=== PATIENT | female | born 2000 | race Caucasian/White ===

== ENCOUNTER 2024-09-30 14:30 | Outpatient (AMB) | payer MEDICAID, SELFPAY ==
[2024-09-30 14:50] VITALS: BP 121/80; PULSE 86; RESP 16; TEMP 36.5; O2SAT 97; BMI 33.2
--- NOTE | 2024-09-30 14:50 | OBCLNT_ITS ---
Vital Signs 09/30/24 14:50 Height 1.7 m Height Method Stated Weight 96.218 kg Weight Measurement Method Standing Scale BMI 33.2 BP 121/80 Blood Pressure Source Automatic Cuff Blood Pressure Location Right Upper Arm Position Sitting Respiration 16 Pulse 86 Pulse Source Monitor Temp 97.7 F Temp Source Oral Pulse Oximetry (%) 97 Oxygen Delivery Method Room Air Allergies/Home Meds Allergies & Medications Allergies No Known Allergies Allergy (Verified 09/30/24 15:00) Medication Reconciliation vit no.95-ferrous fumarate 28 mg-folic acid 800 mcg tablet () 1 tab PO QDAY 09/06/23 [History Confirmed 09/30/24] Intake Visit Data Collection New Patient or Established: Established Patient (seen at [facility] within 3 years) Reason for Visit:: INITIAL CARE Seen by Clinical Staff ONLY (RN/MA): No Patient Transportation Driver Required: No Do You Feel Safe at Home: Yes Authorities Contacted: N/A PCP or OBGYN visit in last 3 months: No Hx Now: Yes Are you currently on any form of Control: No Pain Present Currently: No Pain Scale Used: Kelley-Dangelo/Numerical Pain scale:: 0 Smoking Status Smoking Status: Never smoker Questionnaires Covid-19 Vaccine Questionnaire Has patient been vacinated for Covid-19 Have you been vacinated for Covid-19: Yes PHQ-9 PHQ-2 Over the last 2 weeks, how often have you been bothered by any of the following problems? 1. Little interest or pleasure in doing things: not at all 2. Feeling down, depressed, or hopeless: not at all Total score: 0 PHQ-9 3. Trouble falling or staying asleep, or sleeping too much: Not at all 4. Feeling tired or having little energy: Not at all 5. Poor appetite or overeating: Not at all 6. Feeling bad about yourself - or that you are a failure or have let yourself or your family down: Not at all 7. Trouble concentrating on things, such as reading the newspaper or watching television: Not at all 8. Moving or speaking so slowly that other people could have noticed? - Or the opposite - being so fidgety or restless that you have been moving around a lot more than usual: not at all 9. Thoughts that you would be better off or of hurting yourself in some way: Not at all Total score: 0 Source: Developed by Drs. Guy Brown, Nesha Regan, Edwin Luu and colleagues, with an educational ritika from [employer]. Depression screen completed yes Social History Living Situation History Housing: House Tobacco History Smoking Status: Never smoker Second Hand Smoke Exposure: Yes Alcohol History Alcohol Intake: Never Domestic Abuse History Do You Feel Safe at Home: Yes History of Present Illness HPI Narrative 24 yo at 10w3 for OBI. LMP07/19/24, poor dates. close spacing. 1 YO at home. no SAB complaints. EDC 04/27/25. elevated BMI, No PMH. c/o severe Migranes since 09/05. reporte getting migranes 3 x per week. They can be so severe that she has to stop what she is doing and lie down in a dark cool place. Tylenol does not help. cooling cap , and dark places help. no aura, no visual changes, no neurologic complaints. + nausea.tired, happy about , unplanned. no contraception.. 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 tylenol does not help. cooling cap, darkness and cool places help. patient usually has to lie daow. migranes 3 x per week. no SAB complaints. + nausea. close spacing schedule NT scan with MFM, sab precaution, continue current measure for helping with migrane/cooling cap,tylenol and resting in dark room. OB panel,NIPT,carrier screen today. hydrate, increase protien, small meals, sched appointment with PCP for migranes, TANK for worsening s/s. rtc 4 week OBC Menstrual History Menstrual reliability: approximate (month known) Flow: normal Menstrual regularity: irregular Monthly: No Age at menarche: 13 On control pills at conception: No Associated symptoms (LMP): Reports nausea, fatigue, breast tenderness and bloating OB History : 2 Para: 1 # of Living Children: 1 Delivery History 1st : Child's name: TANNER date: 09/08/23 sex: male Gestational age at delivery (weeks): 40 Delivery type: vaginal Delivery complications: NONE History of depression before or after : No Infection History & Risk Evaluation History of STDs: none Genetic Screening & History Genetic Screening/Teratology Counseling - Includes patient, baby's father, or anyone in either family with: 1. Patient's age 35 years or older as of estimated date of delivery: No 2. Thalassemia (Lao, Mongolian, Mediterranean, or Background); MCV less than 80: No 3. Neural Tube Defect (Meningomyelocele, Spina Bifida, or Anencephaly): No 4. Congenital Heart Defect: No 5. Down Syndrome: No 6. Fritz-Sachs (Ashkenazi Nondenominational, Cajun, Syrian [place]): No 7. Aury Disease (Ashkenazi Nondenominational): No 8. Familial Dysautonomia (Ashkenazi Nondenominational): No 9. Sickle Cell Disease or Trait (): No 10. Hemophilia or other blood disorders: No 11. Muscular Dystrophy: No 12. Cystic Fibrosis: No 13. Isaias's Chorea: No 14. Mental Retardation/Autism: No 15. Other inherited genetic or chromosomal disorder: No 16. Maternal Metabolic Disorder (EG,TYPE 1 Diabetes, PKU): No 17. Patient or baby's father had a child with defects not listed above: No 18. Recurrent loss or a stillbirth: No 19. Medications (including supplements, vitamins, herbs or otc drugs)/illicit/recreational drugs/alcohol since last menstrual period: No 20. Any other: No Infection History 1. Live with someone with TB or exposed to TB: No 2. Rash or viral illness since last menstrual period: No 3. Hepatitis B,C: No Other (see comments) Source: [employer] Review of Systems Review of Systems Systems Reviewed: All systems reviewed, normal except as documented Constitutional Constitutional: Reports fatigue Gastrointestinal Gastrointestinal: Reports bloating and Reports nausea Endocrine Endocrine: Reports fatigue Exam General Limitations: no limitations General Appearance: alert, in no apparent distress, comfortable, cooperative, healthy appearing, well developed and well groomed Head Head exam: atraumatic, normocephalic and normal inspection Chest Chest inspection: Present normal inspection and symmetric chest wall rise Resp Respiratory exam: Present normal lung sounds bilaterally Card Cardiovascular exam: Present regular rate, normal rhythm and normal heart sounds Abdominal Abdominal exam: Present soft and normal bowel sounds Psych Psychiatric exam: Present normal affect and normal mood Office Procedures OB Clinic LOC & Office Proc's Nursing/Assessment Patient Status: Established Patient OB Clinic Nursing Assessment: Medication Reconciliation, Update PMH in EMR and Vital Signs OB Clinic Coordination of Care: Complex Care and Chronic Disease 1-5, Consent,records obtained, informed consent, Education Simp Pt/Fam, Lab and Imaging orders, Results/Orders obtained and Staff clarify orders Special Needs: Heart tones Established Patient Charge Established Patient Point Assignment: 135 Established Patient Point Charge: EP Level 4 (120-155) Assessment & Plan Diagnosis / Problem List (1) Encounter for supervision of normal in multigravida in first trimester: Status: Acute (2) Obstetric risk in patient in first trimester, antepartum: Status: Acute Plan schedule NT scan, sab precaution, NIPT,OB panel and carrier screen today. sched ule with PCP for migrane, ER if worsening s/s, continue Tylenol, cooling cap and comfort measure, increase fluid,increase protiene, continue PNV, RTC 4 week OBC Additional Plan Follow Up: 4 Weeks (obc)
== END 2024-09-30 15:28 | disposition home or self-care (01) ==
LOC: HODSOBC 14:30
PROVIDERS: Supervising Provider Advanced Practice Midwife; Visit Provider Advanced Practice Midwife
DX: O09.891 Supervision of other high risk pregnancies, first trimester (principal); Z3A.10 10 weeks gestation of pregnancy; O99.351 Diseases of the nervous system complicating pregnancy, first trimester; G43.909 Migraine, unspecified, not intractable, without status migrainosus
CPT/HCPCS: 81001; 99214; G0463

== ENCOUNTER 2025-04-17 10:18 | Observation (INO) | payer SELFPAY ==
[2025-04-17] VITALS (9 sets, daily range): BP systolic 116–130; BP diastolic 71–79; PULSE 100–116; RESP 19–96; TEMP 36.6; O2SAT 96–98; BMI 39.3
== END 2025-04-17 11:05 | disposition home or self-care (01) ==
PROVIDERS: Admitting Provider Obstetrics & Gynecology; Visit Provider Obstetrics & Gynecology
DX: O36.8130 Decreased fetal movements, third trimester, not applicable or unspecified (principal); Z3A.38 38 weeks gestation of pregnancy
CPT/HCPCS: 59025; 59899

== ENCOUNTER 2025-04-27 00:32 | Inpatient (IN) | payer MEDICAID, SELFPAY ==
[2025-04-27] VITALS (100 sets, daily range): BP systolic 91–194; BP diastolic 51–142; PULSE 92–161; RESP 12–191; TEMP 36.4–37.2; O2SAT 92–100; BMI 39.9
--- NOTE | 2025-04-27 01:25 | XR_ITS ---
Examination: Complete OB ultrasound greater than 14 weeks Date and time of exam: April 27, 2025, 0209 hours INDICATIONS: Pelvic contractions beginning today Findings: Viable intrauterine single fetus with single amniotic sac presentation cephalic Cardiac motion 144 bpm Placenta anterior maternal left grade 2 Medical cord insertion 3 vessel seen Amniotic fluid index 13.6 cm Cervix 5.0 cm Ovaries obscured by bowel gas. Composite estimated gestational age based on BPD, head circumference, abdominal circumference, femur length is 39 weeks 0 days Estimated weight 3575.7 g. Survey of intracranial anatomy, spinal anatomy, abdominal anatomy, four-chamber heart performed with no abnormalities identified. Impression: Viable intrauterine gestation cephalic presentation.
[2025-04-27] MEDS: RINGERS LACTATED 1000 ML 1,000 ML 125 ML IV ×3 (02:04→07:43)
[2025-04-27 02:08] LABS: Basophils # (Auto) 0.0 Thou/mm3 (0.0-0.2); Basophils % (Auto) 0 % (0-2.5); Eosinophils # (Auto) 0.1 Thou/mm3 (0.0-0.5); Eosinophils % (Auto) 1 % (0-10); Hematocrit 32.5 % (36.0-46.0); Hemoglobin 11.1 g/dL (12.0-16.0); Immature Granulocytes Auto 0.05 Thou/mm3 (0.00-0.00); Lymphocytes # (Auto) 2.2 Thou/mm3 (1.0-4.8); Lymphocytes % (Auto) 20 % (10-50); Mean Corpuscular HGB Conc 34.2 g/dl (31.0-37.0); Mean Corpuscular Hemoglobin 30.2 pg (25.0-35.0); Mean Corpuscular Volume 89 fL (80-100); Monocytes # (Auto) 0.6 Thou/mm3 (0.0-0.8); Monocytes % (Auto) 6 % (0-12); Neutrophils # (Auto) 8.3 Thou/mm3 (1.8-7.7); Neutrophils % (Auto) 74 % (37-80); Nucleated Red Blood Cell # 0.00 Thou/mm3 (0.00-0.00); Nucleated Red Blood Cell % 0 /100 WBC (0); Platelet Count 304 Thou/mm3 (140-440); RDW Standard Deviation 46.1 fL (36.4-46.3); Red Blood Count 3.67 Miln/mm3 (4.00-5.20); White Blood Count 11.3 Thou/mm3 (3.6-11.0)
[2025-04-27 02:44] LABS: Syphilis Nonreactive (Nonreactive)
--- NOTE | 2025-04-27 03:11 | PD.LDHP ---
Documentation for date of: 04/27/25 OB Labor/Induct. HPI History of Present Illness Chief complaint: leakage of fluid : 2 Para: 1 Term pregnancies: 1 pregnancies: 0 Living children: 1 History of Abortions: Spontaneous and Elective: 0 History of Vaginal deliveries: 1 History of sections: No History of : No Date of last menstrual period: 07/19/24 TANK: 04/25/25 Gestational Age (weeks): 40 Gestational Age (days): 2 Gestational age based on last menstrual period: 40 History of present illness: Patient presents for loss of fluid, clear, that occurred at 00:20, green-tinged. No regular/painful ctx. No vaginal bleeding. Normal movement. No fevers/chills. History of Present Dating criteria: LMP confirmed by 2nd trimester US Adequate Care: Yes Ultrasounds: normal mid trimester US and other (growth scan [id number] at 36 weeks) Narrative: Hx of 1 at term in 2023, [id number] Current significant for: -Starting BMI 33, taking ASA -Short inter- interval -Positive SMA -mild intermittent asthma -Care with SHANNAN Spencer Labs Maternal Blood Type: O Pos Labs: Positive: Rubella Titre, Negative: RPR, Hepatitis B, HIV, Chlamydia, Gonorrhea and Group Beta Strep and Unknown: Herpes Type 1 and Herpes Type 2 Review of Systems Review of Systems Narrative Review of Systems: Review of Systems Systems Reviewed: All systems reviewed, normal except as documented Constitutional Constitutional: Denies body ache(s), Denies chills, Denies fever(s) and Denies headache(s) ENT Ears, Nose, Mouth, and Throat: Denies headache(s) and Denies vertigo Cardiovascular Cardiovascular: Denies chest pain, Denies palpitations, Denies dyspnea and Denies syncope Respiratory Respiratory: Denies cough, Denies dyspnea Gastrointestinal Gastrointestinal: Denies nausea and Denies vomiting Neurologic Neurologic: Denies convulsions, Denies headache(s), Denies other visual disturbances, Denies syncope and Denies vertigo Past Medical History Family History OTHER FAMILY HX: Paternal Grandfather T2DM Surgical History SURGICAL: Negative Section OTHER SURGICAL HX: excision of breast cyst, appendectomy 2022 Social History SOCIAL: No tobacco/ETOH/illicit drug use Past Medical History Comments PMH COMMENT: -Starting BMI 33, taking ASA -mild intermittent asthma -irregular menses (PCOS?) Meds Home Medications and Allergies Home Medications ?Medication ?Instructions ?Recorded ?Confirmed ?Type vit no.95-ferrous 1 tab PO QDAY 09/06/23 04/27/25 History fumarate 28 mg-folic acid 800 mcg tablet () Allergies Allergy/AdvReac Type Severity Reaction Status Date / Time No Known Allergies Allergy Verified 04/27/25 01:14 OB Exam Physical Exam Vital signs: Temp Pulse Resp BP Pulse Ox 98.2 F 108 H 17 117/78 99 04/27/25 00:55 04/27/25 02:52 04/27/25 00:55 04/27/25 02:52 04/27/25 01:44 Narrative: General: well developed, well nourished, no acute distress, conversant Cardiac: normal heart rate Lungs: breathing without distress Abdomen: soft, gravid, non-tender, no rebound or guarding Extremities: no pain with palpation of calves Detailed Labor and Delivery Exam Dilation (cm): 3 Effacement (%): 60 Cervix position: mid station: -2 Presentation: Vertex Membranes: ruptured Amniotic fluid: thin meconium monitor accelerations: 15x15 monitor decelerations: None detention variability: Moderate (11-25) OB Results Labs 04/27/25 01:45 Labs: Short CBC 04/27/25 Range/Units 01:45 WBC 11.3 H (3.6-11.0) Thou/mm3 Hgb 11.1 L (12.0-16.0) g/dL Hct 32.5 L (36.0-46.0) % Plt Count 304 (140-440) Thou/mm3 Impressions Impression: EFW 3575g, ANNIE 13cm OB Assessment & Plan Assessment and Plan (1) SROM (spontaneous rupture of membranes): Status: Acute Assessment and plan: Tatiana is a 25yo with SIUP at 40&3wk presenting with SROM, thin mec, at 00:20 on 04/27. SCE: 3/60/-2. Vitals wnl, benign exam. Reassuring assessment. PMhx/ significant for: -Starting BMI 33, taking ASA -Short inter- interval -Positive SMA -mild intermittent asthma -Care with SHANNAN Spencer Plan: -Admit to L&D -Establish IV, routine labs -CEFM -Clear liquid diet -Instrument Technician/consent re: and augmentation -Initiate IV pitocin in 2 hours if not having regular ctx with cervical change -GBS status: negative -Anticipate -Safe to proceed (2) 40 weeks gestation of : Status: Acute (3) Obesity affecting : Status: Acute (4) Short interval between pregnancies affecting in third trimester, antepartum: Status: Acute (3) Obesity affecting Qualifiers: Trimester: third trimester Obesity type affecting : unspecified obesity Qualified Code(s): O99.213 - Obesity complicating , third trimester
--- NOTE | 2025-04-27 04:01 | PRELIM_ITS ---
Obstetric ultrasound with Doppler. April 27, 2025 0209 hours Clinical history: Unknown EFW, determine EFW Comparison: None available at the time of this report. Findings: The [employer] ticket checker worksheet is not available at the time of this report. There is a gravid uterus with a live fetus of mean gestational age 39 weeks and 0 days (by biometry). cardiac activity is present at a heart rate of 144 beats per minute. There is no evidence of placenta previa or retroplacental hemorrhage. Amniotic fluid is adequate (ANNIE = 13.6 cm). Estimated weight is 3576 grams+/- 529 grams. The cervix measures 5.0 cm, closed. No abnormalities by Doppler. Impression: Gravid uterus with a single live fetus of mean gestational age 39 weeks 0 days. Estimated weight is 3576 grams+/- 529 grams. Report Electronically Signed By: Troy Brandon 04/27/2025 4:00:51 AM [EST]
--- NOTE | 2025-04-27 04:40 | PD.LDPN ---
Documentation for date of: 04/27/25 OB Labor Progress Note Pelvic Exam Dilation (cm): 3 Effacement (%): 60 station: -3 Amniotic membrane status: Ruptured Contractions Monitor mode: External Contraction frequency: 1-5 Contraction pattern: Coupling Contraction intensity: Mild Status status: Category ll Assessment and Plan Comments: Intrapartum Note Patient feeling ctx as fairly strong, though they are not regular. Vitals wnl, afebrile SCE: /-3, mod mec Cat II FHRT for +accels, mod darrion, but occasional variable vs early decels Given Cat II FHRT, have not been able to initiate IV pitocin for augmentation. I discussed with patient current FHRT and that if she does not progress over time with continued Cat II FHRT, would indicate need for Answered all questions Will continue to monitor closely Initiate IV pitocin if FHRT resolves to Cat I CEFM Safe to proceed Arabella Valdes MD
[2025-04-27] MEDS: TERBUTALINE SULF INJ 1 MG/ML VIAL 0.25 MG SC (07:26)
--- NOTE | 2025-04-27 07:36 | PD.LDPN ---
Documentation for date of: 04/27/25 OB Labor Progress Note Pelvic Exam Dilation (cm): 5 Effacement (%): 70 station: -2 Amniotic membrane status: Ruptured Contractions Monitor mode: External Contraction frequency: 1-5 Contraction pattern: Coupling Contraction intensity: Mild Status status: Category ll Assessment and Plan Comments: Went to room for recurrent FHR decels. Patient recently received epidural, bp 90's/50's, prior 120's systolic SCE: 5/60/-2, IUPC and FSE placed Prolonged FHR decel occurred, patient placed far lateral, both sides tried, O2 initiated, IVF infusion rate increased, and ephedrine administered by [employer] CUTTING PRESS FEEDER. With these measures, FHR recovered. Continued to observe at bedside and with next ctx, another FHR decel occurred variable/early so terbutaline administered. FHR variability maintained throughout. Will administer amnioinfusion 500ml NS. Will continue to keep a close eye to FHR tracing. Patient understands that if FHR tracing does not improve or she doesn't progress, will be indicated Safe to proceed Arabella Valdes MD
--- NOTE | 2025-04-27 08:38 | PD.LDPN ---
Documentation for date of: 04/27/25 OB Labor Progress Note Pelvic Exam Dilation (cm): 5 Effacement (%): 70 station: -2 Amniotic membrane status: Ruptured Contractions Monitor mode: External Contraction frequency: 1-5 Contraction pattern: Coupling Contraction intensity: Mild Status status: Category ll History of Present Illness HPI Patient examined at bedside. I was called in because she was having recurrent late decelerations. Patient has no new complaints except as documented above Cervical exam /-3. EFM shows recurrent late decelerations with every contraction. Patient was informed of the recurrent late decelerations and the fact that she may need a . Patient understands
[2025-04-27] MEDS: CITRIC ACID/SODIUM CITR 15 ML UDC (BICITRA) 30 ML PO (08:57)
[2025-04-27] MEDS: ceFAZolin/D5W 2 GM IV 2 GM/100 ML BAG IV ×2 (08:58→17:27)
[2025-04-27] MEDS: FAMOTIDINE INJ 10 MG/ML VIAL 2 ML 20 MG IV (08:58)
--- NOTE | 2025-04-27 10:52 | SUR.PHASEI ---
1050 patient arrived to recovery resting comfortably in bed, drowsy and able to response to verbal prompting, breathing unlabored, vital signs stable, denies pain, dressing intact to lower abdomen; prineo and to vaginal area; no bleeding noted, post spinal/epidural assessment via ice; dermatome sensation at T8-costal margin, 16F east catheter in place with leg secure draining to gravity, fundus at 2-fingers above umbilicus firm and locia is free flow, report received from Carolina LEONARDO and Dr. Benavides
--- NOTE | 2025-04-27 11:36 | ESOP_ITS ---
Operative Note - BULLDOZER OPERATOR Procedure Date of procedure: 04/27/25 Procedure Performed: Primary Low Transverse Section Indication: Tatiana is a 25yo with SIUP at 40&4wk with PROM, meconium, at 00:20 on 04/27. SCE: 3/60/-2. She progressed to 5-6cm, but no further, and developed a persistent Cat II FHRT with inability to augment. Pre-Op diagnosis: -SIUP at 40w4d -PROM, meconium, 00:20 on 04/27 -Persistent Cat II FHRT remote from delivery with inability to augment -Starting BMI 33, taking ASA -Short inter- interval -Positive SMA -Mild intermittent asthma Post-Op diagnosis: -SIUP at 40w4d -PROM, meconium, 00:20 on 04/27 -Persistent Cat II FHRT remote from delivery with inability to augment -Double nuchal cord -Starting BMI 33, taking ASA -Short inter- interval -Positive SMA -Mild intermittent asthma Anesthesia type: Epidural Fluids: crystalloid Fluid amount (mL): 1,800 Urine output (mL): 200 Specimen: other (placenta and cord not sent to pathology) Estimated blood loss (ml): 1,000 Findings: Meconium-stained fluid. Male in cephalic presentation, head wedged into pelvis (vaginal hand assist needed from CASE PREPARER AND LINER to lift head out of pelvis for delivery). Double nuchal cord reduced at delivery. Apgars 8/9, weight 8lb. Time of 09:37 on 04/27/25. Normal appearing uterus, fallopian tubes and ovaries. Inferior midline extension of hysterotomy repaired carefully with assistance of Dr. Rodriguez. Complications: none Narrative: After obtaining informed consent, the patient was taken to the operating room. There was reassuring heart rate tracing prior. Epidural anesthesia in place as well as east catheter. Bilateral sequential compression devices were placed. She was then prepped and draped in the normal sterile fashion in the dorsal supine position with left lateral tilt. A timeout was performed to confirm patient name, date of , procedure and indication. The team was in agreement. Epidural anesthesia was found to be adequate using an Allis clamp. Anceph 2g IV x1 were given for prophylaxis. A Pfannenstiel skin incision was then made with the scalpel and carried through to the underlying layer of fascia. The fascia was incised in the midine and the incision was extended laterally with the Gerard scissors. The superior and inferior aspects of the fascial incision were then grasped with the Geri clamps, elevated and the underlying rectus muscles were dissected off bluntly and sharply. The peritoneum was entered digitally and the rectus muscles were then in the midline. The peritoneal incision was then extended superiorly and inferiorly with good visualization of the bladder. An Daljit retractor was placed and the vesicouterine peritoneum was then identified, grasped with the pickups, and entered sharply with the Metzenbaum scissors. The incision was extended laterally and the bladder flap created digitally. The lower uterine segment was scored in a transverse fashion with the scalpel. The uterus was then entered bluntly and the incision was extended with traction with meconium stained amniotic fluid noted. The 's head was elevated to the level of the incision with vaginal hand assist from CASE [employer]PARER [employer] LINER, because the head was wedged tightly into the pelvis. Fundal pressure was applied. The head was delivered atraumatically in the OA position. Double nuchal cord reduced. The anterior shoulder, posterior shoulder and corpus were delivered without d ifficulty. The nose and mouth were suctioned with bulb suction and cord was clamped x2 and cut. Infant was vigorous. The infant was handed off to the awaiting nursing team. Cord blood obtained for typing. The placenta was then removed with uterine massage and cord traction. The uterus was exteriorized and cleared of all clot and debris. Allis clamps were placed along the hysterotomy to clamp bleeding areas as well as to help identify the inferior aspect of a midline extension of the hysterotomy. The uterine incision was repaired with 0-monocryl suture in a running locking fashion starting at the left apex. A second O-monocryl was then used to close the inferior extension of the hysterotomy in running locking fashion, closing it fully and then joining the repair with the hysterotomy line. The rest of the hysterotomy was then closed in running locking fashion. The repaired inferior extension was re- inforced with a few figure of 8's using 0 monocryl. The entire uterine incision was inspected and hemostasis was noted. In addition to standard IV pitocin, patient received TXA 1g IV x1 and methergine 0.2mg IM x1 with good uterine tone achieved and maintained. The posterior cul-de-sac was suctioned and the uterus returned to the abdomen. The gutters were cleared of all clot. Daljit retractor was removed. Surgicel snow was placed overlying the repaired hysterotomy. The peritoneum was closed using a 3-0 vicryl suture in running fashion. The rectus muscles were inspected and small areas of oozing were cauterized. The fascia was reapproximated with 0- Vicryl suture in a running fashion. The subcutaneous tissue was then copiously irrigated. Pawan's fascia was reapproximated in 2 layers using 3-0 vicryl suture in a running fashion. The skin was reapproximated with 4-0 monocryl suture in running subcuticular fashion. The incision was cleaned with a wet lap and dried with a dry lap. Doqhyyrwu-agcfisavzyz-snbj bandage was applied overlying the incision and activated according to piping blocker instructions. Sponge, lap and needle counts were correct x2. Sweep of lower uterine segment was done with fundal massage and there was only scant clot present. Firm fundus at U-1cm and firm lower uterine segment noted. The procedure was without complications and the patient tolerated the procedure well. She was taken to recover further on Labor and Delivery, in stable condi tion. Surgical staff Operation Date: 04/27/25 09:15 Case Staff Anesthesiologist: Xavier Benavides Assisting Surgeon: Gerardo Rodriguez RNstrategic planning manager: Trish Marie RNstrategic planning manager: Ashu Liu Diagnosis Discharge Diagnosis (1) Category II heart rate tracing during labor and delivery: Status: Acute (2) delivery delivered: Status: Acute (3) SROM (spontaneous rupture of membranes): Status: Acute (4) Obesity affecting : Status: Acute (5) Short interval between pregnancies affecting in third trimester, antepartum: Status: Acute (6) 40 weeks gestation of : Status: Acute Problem List Completed Was Problem List Reviewed/Reconciled?: Yes (4) Obesity affecting Qualifiers: Obesity type affecting : unspecified obesity Trimester: third trimester Qualified Code(s): O99.213 - Obesity complicating , third trimester
--- NOTE | 2025-04-27 11:43 | SUR.PHASEI ---
1143 patient transported via bed to room 469 without incident, Lynn awaiting arrival, patient and mother at bedside with baby, patient awake and alert, resting comfortably in bed with call light in reach; when this staff writer left patients room.
--- NOTE | 2025-04-27 12:13 | SUR.OPER ---
FHT [address] before start of case
[2025-04-27] MEDS: OXYTOCIN in NS 20 units 20 UNIT/1,000 ML BAG 125 UNIT IV ×2 (12:37→22:37)
[2025-04-27] MEDS: KETOROLAC INJ 30 MG/ML VIAL IVP ×2 (12:37→18:35)
--- NOTE | 2025-04-27 16:59 | EKG_ITS ---
[facility] Test Date: 2025-04-27 Pat Name: THERESE WADE [facility] Female Miner Assistant: MICHELLE : 2000 Requested By: Arabella Barrios Order Number: [id number] Reading MD: Arabella Barrios Measurements Intervals [place] Rate: 110 P: 47 MA: 146 QRS: 2 QRSD: 79 T: 13 QT: 309 QTc: 419 Interpretive Statements SINUS TACHYCARDIA LOW QRS VOLTAGE IN PRECORDIAL LEADS POSSIBLE ANTERIOR MYOCARDIAL INFARCTION , PROBABLY OLD ABNORMAL RHYTHM ECG Compared to ECG 04/06/2019 20:56:41 Low QRS voltage now present Myocardial infarct finding now present Sinus rhythm no longer present /store/S0/[id number]/[id number].pdf
--- NOTE | 2025-04-27 16:59 | XR_ITS ---
EXAMINATION: AP chest single view TECHNIQUE: AP portable sitting chest single view Date and time: April 27, 2025, 1736 hours INDICATIONS: Chest pain today. FINDINGS: Reduced inspiratory effort Normal heart size Lungs are clear. Intact osseous structures IMPRESSION: No active disease
--- NOTE | 2025-04-27 18:12 | PD.EVENT ---
Documentation for date of: 04/27/25 Event Note Event Note: Went to bedside earlier when RN relayed that patient was describing some chest pain with inspiration. It is not central but above the left breast. She has no cough, no SOB. She has tachycardia currently, but has had tachycardia throughout labor course (and on chart review has had other occasions of tachycardia, especially during her prior labor course). She is satting 99% in RA. Afebrile, normotensive. EKG and CXR ordered: EKG shows: SINUS TACHYCARDIA LOW QRS VOLTAGE IN PRECORDIAL LEADS POSSIBLE ANTERIOR MYOCARDIAL INFARCTION , PROBABLY OLD ABNORMAL RHYTHM ECG Compared to ECG 04/06/2019 20:56:41 Low QRS voltage now present Myocardial infarct finding now present Sinus rhythm no longer present CXR shows: EXAMINATION: AP chest single view TECHNIQUE: AP portable sitting chest single view Date and time: April 27, 2025, 1736 hours INDICATIONS: Chest pain today. FINDINGS: Reduced inspiratory effort Normal heart size Lungs are clear. Intact osseous structures IMPRESSION: No active disease Troponin level ordered in abundance of caution- cardiac etiology of chest pain is not likely in this healthy 25yo. Will continue to closely monitor. If does not resolve, or other symptoms develop such as SOB, would proceed with CTPA. Arabella Valdes MD
[2025-04-27 18:50] LABS: Basophils # (Auto) 0.0 Thou/mm3 (0.0-0.2); Basophils % (Auto) 0 % (0-2.5); Eosinophils # (Auto) 0.0 Thou/mm3 (0.0-0.5); Eosinophils % (Auto) 0 % (0-10); Hematocrit 29.6 % (36.0-46.0); Hemoglobin 10.0 g/dL (12.0-16.0); Immature Granulocytes Auto 0.04 Thou/mm3 (0.00-0.00); Lymphocytes # (Auto) 1.1 Thou/mm3 (1.0-4.8); Lymphocytes % (Auto) 8 % (10-50); Mean Corpuscular HGB Conc 33.8 g/dl (31.0-37.0); Mean Corpuscular Hemoglobin 30.1 pg (25.0-35.0); Mean Corpuscular Volume 89 fL (80-100); Monocytes # (Auto) 0.6 Thou/mm3 (0.0-0.8); Monocytes % (Auto) 5 % (0-12); Neutrophils # (Auto) 11.6 Thou/mm3 (1.8-7.7); Neutrophils % (Auto) 87 % (37-80); Nucleated Red Blood Cell # 0.00 Thou/mm3 (0.00-0.00); Nucleated Red Blood Cell % 0 /100 WBC (0); Platelet Count 264 Thou/mm3 (140-440); RDW Standard Deviation 47.7 fL (36.4-46.3); Red Blood Count 3.32 Miln/mm3 (4.00-5.20); White Blood Count 13.4 Thou/mm3 (3.6-11.0)
[2025-04-27 19:42] LABS: Troponin I < 0.002 ng/mL (0.0-0.045)
[2025-04-27] MEDS: DOCUSATE SOD 100 MG CAPSULE PO (20:52)
[2025-04-27] MEDS: HYDROcodone/APAP 5/325 TABLET 1 TAB PO (20:52)
[2025-04-27] MEDS: SIMETHICONE 80 MG CHEW PO (22:37)
[2025-04-28 00:29] VITALS: BP 114/21; PULSE 106; RESP 18; TEMP 36.6; O2SAT 96
[2025-04-28] MEDS: KETOROLAC INJ 30 MG/ML VIAL IVP ×2 (00:50→05:08)
[2025-04-28 04:22] VITALS: BP 108/69; PULSE 98; RESP 16; TEMP 36.8; O2SAT 96
[2025-04-28] MEDS: SIMETHICONE 80 MG CHEW PO (05:08)
[2025-04-28 06:39] LABS: Basophils # (Auto) 0.0 Thou/mm3 (0.0-0.2); Basophils % (Auto) 0 % (0-2.5); Eosinophils # (Auto) 0.1 Thou/mm3 (0.0-0.5); Eosinophils % (Auto) 1 % (0-10); Hematocrit 26.9 % (36.0-46.0); Hemoglobin 9.0 g/dL (12.0-16.0); Immature Granulocytes Auto 0.08 Thou/mm3 (0.00-0.00); Lymphocytes # (Auto) 1.8 Thou/mm3 (1.0-4.8); Lymphocytes % (Auto) 14 % (10-50); Mean Corpuscular HGB Conc 33.5 g/dl (31.0-37.0); Mean Corpuscular Hemoglobin 30.1 pg (25.0-35.0); Mean Corpuscular Volume 90 fL (80-100); Monocytes # (Auto) 0.8 Thou/mm3 (0.0-0.8); Monocytes % (Auto) 6 % (0-12); Neutrophils # (Auto) 10.3 Thou/mm3 (1.8-7.7); Neutrophils % (Auto) 79 % (37-80); Nucleated Red Blood Cell # 0.00 Thou/mm3 (0.00-0.00); Nucleated Red Blood Cell % 0 /100 WBC (0); Platelet Count 239 Thou/mm3 (140-440); RDW Standard Deviation 48.4 fL (36.4-46.3); Red Blood Count 2.99 Miln/mm3 (4.00-5.20); White Blood Count 13.0 Thou/mm3 (3.6-11.0)
--- NOTE | 2025-04-28 06:53 | PD.LDPPPRG ---
Subjective Subjective Interval history: Patient doing well overall. Pain is controlled. She is ambulating no lightheadedness/dizziness. Voiding spontaneously since east was removed, no issues. Tolerating regular diet without nausea/vomiting. Not yet passing gas. No fevers/chills. Chest pain has completely resolved. No SOB. Exam Vital Signs Temp Pulse Resp BP Pulse Ox O2 Del Method 98.2 F 98 16 108/69 96 Room Air 04/28/25 04:22 04/28/25 04:22 04/28/25 04:22 04/28/25 04:22 04/28/25 04:22 04/28/25 04:22 Narrative Exam General: well developed, well nourished, no acute distress, conversant Cardiac: normal heart rate Lungs: breathing without distress Abdomen: soft, post-gravid, non-tender, no rebound or guarding, pfannenstiel incision covered by dry/clean/intact prineo bandage. Incision well reapproximated. No erythema, drainage or induration. Fundus firm at u-2cm. Extremities: no pain with palpation of calves, trace edema of BLE Objective Labs 04/27/25 18:00 Labs: Laboratory Results - last 24 hr 04/27/25 04/27/25 18:00 18:01 WBC 13.4 H RBC 3.32 L Hgb 10.0 L Hct 29.6 L MCV 89 MCH 30.1 MCHC 33.8 RDW Std Deviation 47.7 H Plt Count 264 D Neut % (Auto) 87 H Lymph % (Auto) 8 L [place] % (Auto) 5 Eos % (Auto) 0 Baso % (Auto) 0 Neut # (Auto) 11.6 H Lymph # (Auto) 1.1 [place] # (Auto) 0.6 Eos # (Auto) 0.0 Baso # (Auto) 0.0 Immature Gran # (Auto) 0.04 H Absolute Nucleated RBC 0.00 Immature Gran % 0 Nucleated RBC % 0 Troponin I < 0.002 Assessment & Plan Problem List (1) delivery delivered: Status: Acute Assessment and plan: Tatiana is a 25yo G2 nowP2 s/p uncomplicated PLTCS after presenting in labor and experiencing persistent Cat II FHRT remote from delivery, doing well on POD 1. Vitals wnl, benign exam. Hemodynamically stable with no evidence of infection. Hgb 11.1 --> 10 --> pending. Still awaiting passage of gas. Yesterday evening she had some left non-central chest pain- normal CXR, EKG showed possible old [place] so troponin was drawn which was <0.002. She states today the pain totally resolved. complicated by: -Starting BMI 33 -Short inter- interval -Positive SMA -Mild intermittent asthma Plan: -Continue routine /post-op care -Regular diet -motrin 800mg PO Q8hr, norco 5/325mg PO Q6hr prn pain -Encouraged ambulation to assist with passing gas -Encourage use of IS -Anticipate discharge home tomorrow if meeting all milestones (2) Category II heart rate tracing during labor and delivery: Status: Acute (3) SROM (spontaneous rupture of membranes): Status: Acute (4) Obesity affecting : Status: Acute (5) Short interval between pregnancies affecting in third trimester, antepartum: Status: Acute (6) 40 weeks gestation of : Status: Acute Time Spent With Patient Time: Total time spent is greater than 50% in coordination of care (as documented) at patient's floor/unit and/or counseling patient:
[2025-04-28 09:03] VITALS: BP 115/76; PULSE 108; RESP 17; TEMP 36.7; O2SAT 98
[2025-04-28] MEDS: DOCUSATE SOD 100 MG CAPSULE PO ×2 (09:06→21:02)
[2025-04-28] MEDS: PRENATAL VITAMIN/FE FUM/FA TABLET 1 TAB PO (09:06)
[2025-04-28] MEDS: FERRIC SOD GLUC INJ 125 MG in SODIUM CHLORIDE 0.9% 100 ML 110 MG IV (09:06)
[2025-04-28 12:14] VITALS: BP 104/68; PULSE 97; RESP 16; TEMP 36.8; O2SAT 99
[2025-04-28] MEDS: IBUPROFEN TAB 400 MG TABLET 800 MG PO ×2 (15:30→21:02)
[2025-04-28 15:33] VITALS: BP 105/73; RESP 16; TEMP 36.8; O2SAT 99
[2025-04-28 20:00] VITALS: BP 112/74; PULSE 101; RESP 18; TEMP 36.7; O2SAT 96
[2025-04-29 04:44] VITALS: BP 114/74; PULSE 94; RESP 16; TEMP 36.6; O2SAT 96
[2025-04-29] MEDS: IBUPROFEN TAB 400 MG TABLET 800 MG PO ×2 (06:17→15:15)
--- NOTE | 2025-04-29 07:25 | CHAP ---
Patient was visited by a Spiritual Care Volunteer on 04/28/2025 between 0900 and 1130 and reeived comfort, encouragement and/or prayer. Family also received a blessing on infant and family.
[2025-04-29 08:00] VITALS: BP 102/67; PULSE 94; RESP 18; TEMP 36.6; O2SAT 96
[2025-04-29] MEDS: ENOXAPARIN SOD INJ 40 MG/0.4 ML SYRINGE SC (08:30)
[2025-04-29] MEDS: PRENATAL VITAMIN/FE FUM/FA TABLET 1 TAB PO (08:30)
[2025-04-29] MEDS: DOCUSATE SOD 100 MG CAPSULE PO (08:30)
[2025-04-29] MEDS: HYDROcodone/APAP 5/325 TABLET 1 TAB PO (08:34)
--- NOTE | 2025-04-29 13:00 | PD.LDDS ---
DS: Providers Provider Date of admission: 04/27/25 01:30 Primary care physician: Physician No Primary/Family Admitting Provider: Arabella Valdes MD Attending Provider on Admission: Gerardo Rodriguez MD Consults: 04/27/25 11:31 Referral Routine Comment: Attending Provider on DC: Erin Boyd MD Discharging Provider: Erin Boyd MD DS: Diagnosis Problem List Completed Was Problem List Reviewed/Reconciled?: Yes Summary/Hosp Course Brief History: Tatiana is a 25yo G2 nowP2 s/p uncomplicated PLTCS after presenting in labor and experiencing persistent Cat II FHRT remote from delivery, doing well on POD 1. Vitals wnl, benign exam. Hemodynamically stable with no evidence of infection. Hgb 11.1 --> 10 --> 9 . Has passage of gas. Yesterday evening she had some left non-central chest pain- normal CXR, EKG showed possible old [place] so troponin was drawn which was <0.002. She states today the pain totally resolved. complicated by: -Starting BMI 33 -Short inter- interval -Positive SMA -Mild intermittent asthma Patient examined at bedside. I was called in because she was having recurrent late decelerations. Patient has no new complaints except as documented above Cervical exam 6/80/-3. EFM shows recurrent late decelerations with every contraction. Patient was informed of the recurrent late decelerations and the fact that she may need a . Patient understands Peripartum Data Delivery Method: Low Transverse Episiotomy Description: None Procedures: Procedures Operation Date: 04/27/25 09:15 Actual Procedure Side Surgeon p in OR Arabella Valdes MD Time Spent with Patient Time attestation: Total time spent providing and/or coordinating discharge services: Exam Vital Signs Temp Pulse Resp BP Pulse Ox O2 Del Method 97.8 F 94 18 102/67 96 Room Air 04/29/25 08:00 04/29/25 08:00 04/29/25 08:00 04/29/25 08:00 04/29/25 08:00 04/29/25 08:00 Narrative Exam alert x3 chest clear CVS RRR NO thyromegaly Uterus is nontender Uterus is firm/ appropriate size Just below the umbilicus Bowel sounds present Abdomen soft no hernias noted/no CVAT Incision CDI No drainage Appropriately tender No calf tenderness Edema mild Discharge Plan Plan Patient Disposition: HOME (Self Care) Patient condition on transfer: Stable Prescriptions/Referrals Prescriptions/Med Rec: New docusate sodium 100 mg Capsule 100 mg PO BID 10 Days Qty: 20 0RF hydrocodone-acetaminophen 5-325 mg Tablet 1 tab PO Q6H MDD 4 tablets PRN (Reason: Patient rated pain 7 to 8) 7 Days Qty: 12 0RF ibuprofen 800 mg tablet 800 mg PO Q8HR PRN (Reason: Abdominal Pain) 10 Days Qty: 30 0RF ferrous sulfate 325 mg (65 mg iron) tablet,delayed release (DR/EC) 325 mg PO QDAY Qty: 30 0RF Continued PNV no.95-ferrous fumarate-FA [] 28 mg iron- 800 mcg tablet 1 tab PO QDAY Patient Comments: TAKE 1 TABLET BY MOUTH EVERY DAY Referrals: No Primary/Family,Physician [Primary Care Provider] Patient/Caregiver Discharge Instructions Discharge Activity: activity as tolerated and other Other Discharge Activity Instructions:: follow up with SHANNAN Spencer in 1 to 2 weeks for incision check, call clinic to schedule appointment vaginal rest, no heavy lifting more than 10 pounds for 6 [address] while taking narcotic. keep incision clean and dry, do not submerge. Other Discharge Diet Instructions: regular Education Materials: After Delivery Concerns, Breast Care After , After a , C Section Dc Print Language: Greenlandic Activity Restrictions/Additional Instructions: follow up with SHANNAN Spencer in 1 to 2 weeks for incision check, call clinic to schedule appointment Stand Alone Forms: [employer] Award Info., Patient Portal Info Letter Discharge Order Discharge Orders: Discharge (Routine); Ordered 04/29/25 Ordered By: Erin Boyd Planned Discharge Date 04/29/25
[2025-04-29 15:28] VITALS: BP 104/72; PULSE 85; RESP 18; TEMP 36.6; O2SAT 96
[2025-04-29 16:51] LABS: Basophils # (Auto) 0.0 Thou/mm3 (0.0-0.2); Basophils % (Auto) 0 % (0-2.5); Eosinophils # (Auto) 0.2 Thou/mm3 (0.0-0.5); Eosinophils % (Auto) 2 % (0-10); Hematocrit 27.9 % (36.0-46.0); Hemoglobin 9.3 g/dL (12.0-16.0); Immature Granulocytes Auto 0.05 Thou/mm3 (0.00-0.00); Lymphocytes # (Auto) 2.2 Thou/mm3 (1.0-4.8); Lymphocytes % (Auto) 22 % (10-50); Mean Corpuscular HGB Conc 33.3 g/dl (31.0-37.0); Mean Corpuscular Hemoglobin 30.3 pg (25.0-35.0); Mean Corpuscular Volume 91 fL (80-100); Monocytes # (Auto) 0.6 Thou/mm3 (0.0-0.8); Monocytes % (Auto) 6 % (0-12); Neutrophils # (Auto) 6.9 Thou/mm3 (1.8-7.7); Neutrophils % (Auto) 70 % (37-80); Nucleated Red Blood Cell # 0.00 Thou/mm3 (0.00-0.00); Nucleated Red Blood Cell % 0 /100 WBC (0); Platelet Count 253 Thou/mm3 (140-440); RDW Standard Deviation 50.1 fL (36.4-46.3); Red Blood Count 3.07 Miln/mm3 (4.00-5.20); White Blood Count 9.9 Thou/mm3 (3.6-11.0)
--- NOTE | 2025-04-30 12:36 | ESPR_ITS ---
Documentation for date of: 04/30/25 POST C section ANESTHESIA NOTE: This patient had non emergent C section under epidural dose up anesthesia on 04/27/25. Pre-op, I saw her in OB as soon as possible after the C section was called. She had epidural placed earlier by OB BREWERY CELLAR WORKER and she was alert, NAD and comfortable and reported good working epidural. She had lowe abdomen level bilateral to cold alcohol swab. I discussed with OB regarding planned epidural dose up pre-op. She did well intra-op and at the end, I removed her epidural in OR with catheter and tip intact easily without resistance and band aid applied. I saw her briefly yesterday in OB with her family in room and she was alert, NAD, seating up in chair, denied any problems from anesthesia. Xavier Benavides MD Anesthesia Progress Note Progress Note Most recent Vital Signs: Last Vital Signs Temp 97.8 F 04/29/25 15:28 Pulse 85 04/29/25 15:28 Resp 18 04/29/25 15:28 BP 104/72 04/29/25 15:28 Pulse Ox 96 04/29/25 15:28 O2 Del Method Room Air 04/29/25 15:28
== END 2025-04-29 17:50 | disposition home or self-care (01) | DRG 540 ==
LOC: S4SX 09:04 → S4NX 09:36
PROVIDERS: Obstetrics & Gynecology; Admitting Provider Obstetrics & Gynecology; Visit Provider Obstetrics & Gynecology
PROC: 10D00Z1 Extraction of Products of Conception, Low, Open Approach (ICD-10-PCS; CPT 59514; principal; 2025-04-27 09:00)
DX: O48.0 Post-term pregnancy (principal); O99.52 Diseases of the respiratory system complicating childbirth; J45.20 Mild intermittent asthma, uncomplicated; Z37.0 Single live birth; Z3A.40 40 weeks gestation of pregnancy; O99.214 Obesity complicating childbirth; O69.81X0 Labor and delivery complicated by cord around neck, without compression, not applicable or unspecified; O76 Abnormality in fetal heart rate and rhythm complicating labor and delivery; O77.0 Labor and delivery complicated by meconium in amniotic fluid; O71.81 Laceration of uterus, not elsewhere classified
CPT/HCPCS: 36415; 59025; 71045; 76805; 84112; 84484; 85025; 86780; 86850; 86900; 86901; 93005; 94762; A4217; A4649; J0689; J1650; J1885; J2210; J2250; J2371; J2405; J2590; J2765; J2795; J2916; J3010; J3105; J3290; J3490; J7050; J7120; A9270